=== PATIENT | male | born 1995 | race Caucasian/White ===

== ENCOUNTER 2016-12-18 20:04 | Emergency (ER) | payer BC ==
[~2016-12-18] VITALS: Ht 167.6 cm; Wt 63.2 kg
[2016-12-18 20:30] VITALS: TEMP 36.6; Ht 167.6 cm; Wt 63.2 kg
[2016-12-18 21:35] LABS: MANUAL MICROSCOPIC REQUIRED? NO; REVIEW REQ? NO; URINE APPEARANCE CLEAR (CLEAR); URINE BILIRUBIN NEG (NEG); URINE COLOR DK YELLOW; URINE NITRITE NEG (NEG); URINE SPECIFIC GRAVITY 1.016 (1.000-1.030); UROBILINOGEN NEG (NEG); ZZUR CULT IF INDIC CLEAN CATCH NO
[2016-12-18 21:38] LABS: BASO % 0.6 %; BASO ABS # 0.04 K/uL (0-0.2); COMPLETE YES; EOS % 1.2 %; HEMATOCRIT 41.6 % (42-52); IG% 0.1 %; LYMPH ABS # 3.22 K/uL (1.2-3.4); MEAN CELL VOLUME 86.3 fL (80-100); MEAN CORPUSCULAR HEMOGLOBIN 29.3 pg (25-34); MEAN CORPUSCULAR HGB CONC 33.9 g/dl (32-36); MEAN PLATELET VOLUME 9.3 fL (7.4-10.4); MONO % 5.7 %; NEUT % 45.4 %; PLATELET COUNT 219 K/uL (130-400); RED BLOOD COUNT 4.82 M/uL (4.7-6.1); WHITE BLOOD COUNT 6.85 K/uL (4.8-10.8)
--- NOTE | 2016-12-18 21:42 | DIAGNOSTIC IMAGING REPORT ---
KUB CLINICAL HISTORY: constipation DIARRHEA. BLOOD IN STOOL. COMPARISON STUDY: No previous studies for comparison. FINDINGS: There is no pathologic bowel dilatation. The bowel gas pattern is unremarkable in appearance. No abnormal abdominal calcifications are visualized. There is L5 spina bifida occulta. IMPRESSION: Unremarkable bowel gas pattern. Electronically signed by: Hernando Machado M.D. 12/18/2016 9:41 PM Dictated Date/Time: 12/18/2016 9:40 PM
[2016-12-18 21:54] LABS: BUN/CREATININE RATIO 17.8 (10-20); CREATININE 0.98 mg/dl (0.60-1.40); POTASSIUM 3.7 mmol/L (3.5-5.1)
[2016-12-18 21:57] LABS: ALB/GLOB RATIO 1.2 (0.9-2)
[2016-12-18 22:05] LABS: CALCIUM 8.7 mg/dl (8.5-10.1)
[2016-12-18 23:03] VITALS: BP 107/61; PULSE 45; O2SAT 98
--- NOTE | 2016-12-18 23:17 | EMERGENCY ROOM VISIT NOTE ---
History First contact with patient: 20:47 Chief Complaint: RECTAL BLEEDING Stated Complaint: SENT BY URGENT CARE,RECTAL BLEED,LOW BP Nursing Triage Summary: c/o constipation then hard bms with " some blood noted in my stool" for 2 days. denies pain. History of Present Illness The patient is a 21 year old male who presents to the Emergency Room with complaints of rectal bleeding 2 days. The patient states that for the past 2 days, he has had a large amount of bright red blood with every bowel movement. He states the blood has been filling the toilet bowl. He reports he feels he has been slightly constipated, as he has not been moving his bowels as much as normally. The patient has had similar symptoms approximately 6 months ago but states that they resolved at that time without any treatment. He denies any weakness, dizziness or lightheadedness. He denies any history or family history of bleeding disorders. He denies any abdominal pain, nausea or vomiting. The patient was seen at urgent care prior to arrival here and sent here due to low blood pressure, per patient. Review of Systems A complete 10 point review of systems was reviewed with the patient with pertinent positives and negatives as per history of present illness. All else were negative. Social History Smoking Status: Never Smoker Current/Historical Medications No Active Prescriptions or Reported Meds Allergies Coded Allergies: No Known Allergies (Unverified , 12/18/16) Physical Exam Vital Signs Date Time Temp Pulse Resp B/P (MAP) Pulse Ox O2 Delivery O2 Flow Rate FiO2 12/18/16 23:03 45 18 107/61 98 Room Air 12/18/16 22:07 50 20 100/50 99 Room Air 12/18/16 20:30 36.6 49 18 110/68 100 Room Air Physical Exam VITALS: Vitals are noted on the nurse's note and reviewed by myself. Vital signs stable. GENERAL: This is a 21-year-old male, in no acute distress, nondiaphoretic, well- developed well-nourished. HEART: Regular rate and rhythm without murmurs gallops or rubs. LUNGS: Clear to auscultation bilaterally without wheezes, rales or rhonchi. ABDOMEN: Positive bowel sounds x 4. Soft, nontender, without masses or organomegaly. RECTAL: No hemorrhoids noted. Normal rectal tone. Light brown blood-streaked heme positive stool. NEURO: Patient was alert and oriented to person place and time. Medical Decision & Procedures ER Provider Diagnostic Interpretation: KUB FINDINGS: There is no pathologic bowel dilatation. The bowel gas pattern is unremarkable in appearance. No abnormal abdominal calcifications are visualized. There is L5 spina bifida occulta. IMPRESSION: Unremarkable bowel gas pattern. Laboratory Results 12/18/16 21:29 Red Blood Count 4.82, Mean Corpuscular Volume 86.3, Mean Corpuscular Hemoglobin 29.3, Mean Corpuscular Hemoglobin Concent 33.9, Mean Platelet Volume 9.3, Neutrophils (%) (Auto) 45.4, Lymphocytes (%) (Auto) 47.0, Monocytes (%) (Auto) 5.7, Eosinophils (%) (Auto) 1.2, Basophils (%) (Auto) 0.6, Neutrophils # (Auto) 3.11, Lymphocytes # (Auto) 3.22, Monocytes # (Auto) 0.39, Eosinophils # (Auto) 0.08, Basophils # (Auto) 0.04 12/18/16 21:29 Test 12/18/16 20:30 12/18/16 21:29 Urine Color DK YELLOW Urine Appearance CLEAR (CLEAR) Urine pH 8.0 (4.5-7.5) Urine Specific [place] 1.016 (1.000-1.030) Urine Protein NEG (NEG) Urine Glucose (UA) NEG (NEG) Urine Ketones NEG (NEG) Urine Occult Blood NEG (NEG) Urine Nitrite NEG (NEG) Urine Bilirubin NEG (NEG) Urine Urobilinogen NEG (NEG) Urine Leukocyte Esterase NEG (NEG) White Blood Count 6.85 K/uL (4.8-10.8) Red Blood Count 4.82 M/uL (4.7-6.1) Hemoglobin 14.1 g/dL (14.0-18.0) Hematocrit 41.6 % (42-52) Mean Corpuscular Volume 86.3 fL (80-100) Mean Corpuscular Hemoglobin 29.3 pg (25-34) Mean Corpuscular Hemoglobin Concent 33.9 g/dl (32-36) Platelet Count 219 K/uL (130-400) Mean Platelet Volume 9.3 fL (7.4-10.4) Neutrophils (%) (Auto) 45.4 % Lymphocytes (%) (Auto) 47.0 % Monocytes (%) (Auto) 5.7 % Eosinophils (%) (Auto) 1.2 % Basophils (%) (Auto) 0.6 % Neutrophils # (Auto) 3.11 K/uL (1.4-6.5) Lymphocytes # (Auto) 3.22 K/uL (1.2-3.4) Monocytes # (Auto) 0.39 K/uL (0.11-0.59) Eosinophils # (Auto) 0.08 K/uL (0-0.5) Basophils # (Auto) 0.04 K/uL (0-0.2) RDW Standard Deviation 39.4 fL (36.4-46.3) RDW Coefficient of Variation 12.4 % (11.5-14.5) Immature Granulocyte % (Auto) 0.1 % Immature Granulocyte # (Auto) 0.01 K/uL (0.00-0.02) Anion Gap 9.0 mmol/L (3-11) Est Creatinine Clear Calc Drug Dose 107.5 ml/min Estimated GFR () 128.1 Estimated GFR (Non- 110.5 BUN/Creatinine Ratio 17.8 (10-20) Calcium Level 8.7 mg/dl (8.5-10.1) Total Bilirubin 0.8 mg/dl (0.2-1) Aspartate Amino Transf (AST/SGOT) 17 U/L (15-37) Alanine Aminotransferase (ALT/SGPT) 21 U/L (12-78) Alkaline Phosphatase 68 U/L (45-117) Total Protein 7.1 gm/dl (6.4-8.2) Albumin 3.9 gm/dl (3.4-5.0) Globulin 3.2 gm/dl (2.5-4.0) Albumin/Globulin Ratio 1.2 (0.9-2) Lipase 90 U/L (73-393) ED Course The patient was evaluated as above. Labs were drawn and IV access was obtained. Patient was reevaluated and findings were discussed. I asked case management to speak with the patient regarding a follow up appointment with GI. Discharge instructions were reviewed with the patient. The patient verbalized understanding of my assessment and treatment plan and was discharged home in good condition. Medical Decision Differential diagnosis includes lower GI bleed, hemorrhoid, anemia, among others. The patient is a 21-year-old male who presents today complaining of rectal bleeding. He has no complaints of pain and no abdominal tenderness. KUB was performed due to patient complaint of slight constipation and was unremarkable. The patient is not anemic. Hemoglobin is within normal limits at 14.1. 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 He is bradycardic and states this is his normal resting heart rate. I do feel the patient needs follow up with GI in the next few days given the amount of bleeding he is having. Case management will arrange follow up. The patient was encouraged to return for any dizziness, weakness, or lightheadedness. The patient's case was reviewed with Dr. Doe, ED attending physician, who agreed with my assessment and treatment plan. Based on the patient's presentation and work up, I feel the patient is stable for outpatient treatment. The patient was educated to return to the emergency department for any worsening of their current condition or new/concerning symptoms. He will follow up with GI and his PCP. Medication reconciliation: I attest that I have personally reviewed the patient 's current medication list. Blood pressure screening: Patient was found to have normal blood pressure on screening and does not require follow-up. Impression Primary Impression: Rectal bleeding Departure Information Dispostion Home / Self-Care Condition GOOD Prescriptions No Active Prescriptions or Reported Meds Referrals No Doctor, Assigned (PCP) Patient Instructions My [facility] Additional Instructions Case management will call you tomorrow regarding GI follow-up. It is important for you to keep this appointment for further evaluation of your bleeding. You should also follow-up with your primary care provider. Return to the emergency department immediately for worsening bleeding, lightheadedness, weakness, dizziness or any other new/concerning symptoms.
== END 2016-12-18 23:29 | disposition home or self-care (01) ==
LOC: C.EDB 20:06 → C.EDA 23:29
DX: K62.5 Hemorrhage of anus and rectum (principal)